=== PATIENT | female | born 1955 | race Two or more races ===

== ENCOUNTER 2022-12-20 08:55 | Day surgery (SDC) | payer MEDICARE, OTHER ==
[~2022-12-20 08:55] MED LIST: Lactated Ringers 1,000 ML IV SCH
[2022-12-20] MEDS ORDERED: Propofol 200 MG/20 ML SDV ONE ×2 (09:50→11:03)
[2022-12-20] MEDS ORDERED: Lactated Ringers 1,000 ML IV SCH (11:30)
[2022-12-20] MEDS ORDERED: fentaNYL 50 MCG/ML SDV ONE (12:01)
[2022-12-20] MEDS ORDERED: fentaNYL 50 MCG/ML SDV IVPUSH PRN (12:07)
[2022-12-20 14:49] VITALS: BP 102/62; PULSE 58
== END 2022-12-20 12:30 | disposition home or self-care (01) ==
LOC: MW.SDS 08:55
PROVIDERS: ATTEND Surgery
DX: K63.89 Other specified diseases of intestine (principal); K62.89 Other specified diseases of anus and rectum; Z53.09 Procedure and treatment not carried out because of other contraindication; E03.9 Hypothyroidism, unspecified; F31.9 Bipolar disorder, unspecified; F41.9 Anxiety disorder, unspecified; Z79.890 Hormone replacement therapy; Z79.899 Other long term (current) drug therapy; Z87.891 Personal history of nicotine dependence; Z98.890 Other specified postprocedural states; Z80.0 Family history of malignant neoplasm of digestive organs
CPT/HCPCS: 45378; J2704; J3010; J7120